=== PATIENT | female | born 1990 ===

== ENCOUNTER 2024-09-17 10:03 | Outpatient (CLI) | payer OTHER | END 2024-09-17 10:04 | disposition home or self-care (01) | LOC: PRENATAL 10:03 | PROVIDERS: ATTEND Obstetrics & Gynecology Maternal & Fetal Medicine | DX: O36.80X0 Pregnancy with inconclusive fetal viability, not applicable or unspecified (principal); Z36.82 Encounter for antenatal screening for nuchal translucency; Z36.9 Encounter for antenatal screening, unspecified; Z14.8 Genetic carrier of other disease; O10.019 Pre-existing essential hypertension complicating pregnancy, unspecified trimester; Z3A.12 12 weeks gestation of pregnancy ==

== ENCOUNTER 2024-11-15 10:32 | Outpatient (CLI) | payer OTHER | END 2024-11-15 10:33 | disposition home or self-care (01) | LOC: PRENATAL 10:32 | PROVIDERS: ATTEND Obstetrics & Gynecology Maternal & Fetal Medicine | DX: O44.00 Complete placenta previa NOS or without hemorrhage, unspecified trimester (principal); O10.019 Pre-existing essential hypertension complicating pregnancy, unspecified trimester; Z3A.20 20 weeks gestation of pregnancy ==

== ENCOUNTER 2025-01-06 09:32 | Outpatient (CLI) | payer OTHER | END 2025-01-06 09:34 | disposition home or self-care (01) | LOC: PRENATAL 09:32 | PROVIDERS: ATTEND Obstetrics & Gynecology Maternal & Fetal Medicine | DX: O26.849 Uterine size-date discrepancy, unspecified trimester (principal); O10.019 Pre-existing essential hypertension complicating pregnancy, unspecified trimester; O99.019 Anemia complicating pregnancy, unspecified trimester; Z3A.27 27 weeks gestation of pregnancy ==

== ENCOUNTER 2025-01-14 09:58 | Outpatient (CLI) | payer OTHER | END 2025-01-14 16:33 | disposition home or self-care (01) | LOC: PRENATAL 09:58 | PROVIDERS: ATTEND Obstetrics & Gynecology Maternal & Fetal Medicine | DX: Z76.1 Encounter for health supervision and care of foundling (principal) ==

== ENCOUNTER → 2025-02-17 09:11 | Outpatient (CLI) | payer OTHER | END | disposition home or self-care (01) | LOC: PRENATAL 09:11 | PROVIDERS: ATTEND Obstetrics & Gynecology Maternal & Fetal Medicine | DX: O26.849 Uterine size-date discrepancy, unspecified trimester (principal); O36.8199 Decreased fetal movements, unspecified trimester, other fetus; O10.019 Pre-existing essential hypertension complicating pregnancy, unspecified trimester; O99.019 Anemia complicating pregnancy, unspecified trimester; Z3A.33 33 weeks gestation of pregnancy ==

== ENCOUNTER 2025-03-03 16:37 | Outpatient (CLI) | payer OTHER ==
[2025-03-03 17:02] VITALS: BP 148/92
[2025-03-03 17:34] LABS: BASO % 0.4 % (0.1-1.2); EOS % 5.1 % (0.7-7.0); HEMATOCRIT 32.2 % (34.1-44.9); HEMOGLOBIN 11.1 g/dL (11.2-15.7); LYMPH # 2.11 (1.18-3.74); LYMPH % 21.7 % (19.3-53.1); MEAN CORPUSCULAR HEMOGLOBIN 31.2 pg (25.6-32.2); MONO # 0.64 (0.24-0.82); MONO % 6.6 % (4.7-12.5); NEUT # 6.33 (1.56-6.13); NEUT % 65.3 % (34.0-71.1); PLATELET COUNT 193 K/uL (163-369); RED BLOOD COUNT 3.56 M/uL (3.93-5.22); RED CELL DISTRIBUTION WIDTH 14.9 % (11.6-14.4); URINE APPEARANCE Clear; URINE BILIRRUBIN Negative (NEGATIVE); URINE BLOOD Trace; URINE COLOR Yellow; URINE GLUCOSE Negative (NEGATIVE); URINE KETONE Negative (NEGATIVE); URINE LEUKOCYTE Negative; URINE NITRATE Negative; URINE PROTEIN Negative (NEGATIVE); URINE UROBILINOGEN 0.2 E.U./dl
[2025-03-03 17:38] LABS: URINE BACTERIA 2247.1 uL (0.0-1933); URINE EPITHELIAL CELLS 16.2 uL (0.0-38.8); URINE WBC 9.6 uL (0.0-23.2)
[2025-03-03 17:51] LABS: URINE RBC 1.3 uL (0.0-20.8)
[2025-03-03] MEDS ORDERED: LABETALOL HCL 100 MG TABLET PO SCH ×2 (17:53→21:00)
[2025-03-03] MEDS ORDERED: PRENATAL TABLE1 EAC1 PO (17:55)
[2025-03-03 17:59] LABS: ALBUMIN 2.6 gm/dL (3.4-5.0); BILIRUBIN TOTAL 0.21 mg/dL (0.3-1.2); CALCIUM 8.9 mg/dL (8.5-10.1); CREATININE SERUM 0.57 mg/dL (0.55-1.02); GFR 122.15; GLOBULINA 3.7 G/DL (2.4-3.5); POTASSIUM 4.39 mEq/L (3.5-5.1); TOTAL PROTEIN 6.3 gm/dL (6.4-8.2); URIC ACID 4.3 mg/dL (2.5-7.5)
[2025-03-03 18:00] LABS: INR 0.94; PARTIAL THROMBOPLASTIN TIME 23.9 SECONDS (22.0-34.0); PROTHROMBIN TIME 10.3 SECONDS (9.0-11.5)
[2025-03-03] MEDS ORDERED: RINGERS SOLUTION,LACTATED 1,000 ML IV SCH (18:00)
[2025-03-03] MEDS ORDERED: MAXIFED TABLET1 EACH PO (18:11)
[2025-03-03] MEDS ORDERED: ADULT LOW DOSE81 M1 PO (18:11)
[2025-03-03 19:36] VITALS: BP 147/84; O2SAT 97
[2025-03-03 23:23] VITALS: BP 123/77
[2025-03-04 04:06] VITALS: BP 127/82
[2025-03-04 07:20] VITALS: BP 130/87
[2025-03-04 11:07] VITALS: BP 120/75
[2025-03-04 15:20] VITALS: BP 130/84
[2025-03-04 18:28] LABS: CREATININE URINE 36.5 MG/DL; URINE PROT QUANT 24HR 11.7 MG/DL
[2025-03-04 18:29] LABS: URINE PROT QUANT 24 HR 269.1 MG/24HR (42-225)
[2025-03-04 18:54] LABS: CREATININE SERUM 0.63 mg/dL (0.6-1.0)
[2025-03-04 18:55] VITALS: BP 130/84
[2025-03-04 18:55] LABS: CREATINE CLEARANCE 92.7 ML/MIN (97-137)
== END 2025-03-04 18:59 | disposition home or self-care (01) ==
LOC: OBS/DEL 16:37
PROVIDERS: ATTEND Obstetrics & Gynecology
DX: O26.893 Other specified pregnancy related conditions, third trimester (principal); Z3A.36 36 weeks gestation of pregnancy

== ENCOUNTER 2025-03-14 07:17 | Inpatient (IN) | payer OTHER ==
[~2025-03-14] VITALS: Ht 149.9 cm; Wt 2.7 kg
[~2025-03-14 07:17] MED LIST: ADULT LOW DOSE81 M1 PO; MAXIFED TABLET1 EACH PO; PRENATAL TABLE1 EAC1 PO
[2025-03-14 07:42] VITALS: BP 126/85
[2025-03-14 08:33] LABS: BASO % 0.5 % (0.1-1.2); EOS # 0.22 (0.04-0.54); EOS % 2.8 % (0.7-7.0); LYMPH # 1.70 (1.18-3.74); LYMPH % 21.4 % (19.3-53.1); MEAN PLATELET VOLUME 12.00 fl (9.4-12.4); MONO # 0.49 (0.24-0.82); MONO % 6.2 % (4.7-12.5); NEUT # 5.47 (1.56-6.13); NEUT % 68.6 % (34.0-71.1); RED CELL DISTRIBUTION WIDTH 14.5 % (11.6-14.4); URINE APPEARANCE Clear; URINE BILIRRUBIN Negative (NEGATIVE); URINE BLOOD Negative; URINE COLOR Yellow; URINE GLUCOSE Negative (NEGATIVE); URINE KETONE Negative (NEGATIVE); URINE LEUKOCYTE Negative; URINE NITRATE Negative; URINE PROTEIN Negative (NEGATIVE); URINE UROBILINOGEN 0.2 E.U./dl
[2025-03-14 08:35] LABS: URINE BACTERIA 351.2 uL (0.0-1933); URINE EPITHELIAL CELLS 7.2 uL (0.0-38.8); URINE WBC 4.7 uL (0.0-23.2)
[2025-03-14] MEDS ORDERED: RINGERS SOLUTION,LACTATED 1,000 ML IV SCH (09:00)
[2025-03-14 09:01] LABS: INR 0.94
[2025-03-14] MEDS ORDERED: LABETALOL HCL100 MG PO (09:01)
[2025-03-14 09:04] LABS: URINE CAST 0.00 uL (0.0-1.40); URINE RBC 0.2 uL (0.0-20.8)
[2025-03-14 10:51] LABS: ALT/SGPT 21.0 U/L (12-78); AST/SGOT 21.0 U/L (15-37); BILIRUBIN TOTAL 0.31 mg/dL (0.3-1.2); BUN CREA RATIO 9.0 (7.0-25.0); CREATININE SERUM 0.56 mg/dL (0.55-1.02); GFR 124.67; GLOBULINA 4.0 G/DL (2.4-3.5); GLUCOSE FASTING 87.0 mg/dL (65-100); LDH 204.0 U/L (84-246); OSMOLALITY SERUM 276.0 MOSM/KG (275-295)
[2025-03-14 11:55] VITALS: BP 131/84
[2025-03-14] MEDS ORDERED: MISOPROSTOL 25 MCG/4 ML GEL.W.APPL VAG NR (12:00)
[2025-03-14 15:12] VITALS: BP 134/87
[2025-03-14] MEDS ORDERED: MISOPROSTOL 25 MCG/4 ML GEL.W.APPL VAG ONE ×2 (16:00→20:30)
[2025-03-14 21:15] VITALS: BP 122/88
[2025-03-14 23:14] VITALS: BP 129/72
[2025-03-15 03:45] VITALS: BP 130/79
[2025-03-15 07:39] VITALS: BP 124/92; BP 136/80
[2025-03-15] MEDS ORDERED: MISOPROSTOL 25 MCG/4 ML GEL.W.APPL VAG ONE (11:15)
[2025-03-15 12:20] VITALS: BP 126/73
[2025-03-15 15:12] VITALS: BP 139/73
[2025-03-15] MEDS ORDERED: ERYTHROMYCIN BASE OPHT 1GM EACH TUBE OP ONE (18:00)
[2025-03-15] MEDS ORDERED: OXYTOCIN 10 UNITS/ML VIAL IV ONE (18:00)
[2025-03-15] MEDS ORDERED: PROMETHAZINE HCL 25 MG/ML AMPUL IM PRN (19:45)
[2025-03-15] MEDS ORDERED: MORPHINE SULFATE 4 MG/ML CARTRIDGE IV PRN (19:45)
[2025-03-15] MEDS ORDERED: ACETAMINOPHEN 325 MG TABLET PO PRN (20:00)
[2025-03-15] MEDS ORDERED: OXYTOCIN 1,000 ML IV SCH (20:15)
[2025-03-15] MEDS ORDERED: CEFAZOLIN SODIUM 1,000 MG VIAL IV STA (20:15)
[2025-03-15] MEDS ORDERED: MORPHINE SULFATE 4 MG/ML VIAL IV ONE (21:30)
[2025-03-15 22:11] VITALS: BP 140/86
[2025-03-16 04:00] VITALS: BP 140/80
[2025-03-16] MEDS ORDERED: OxyCODONE HCL 5 MG TABLET (ROXICODONE) PO PRN (06:00)
[2025-03-16 07:52] LABS: BASO % 0.3 % (0.1-1.2); EOS # 0.05 (0.04-0.54); EOS % 0.4 % (0.7-7.0); LYMPH # 1.43 (1.18-3.74); LYMPH % 10.7 % (19.3-53.1); MEAN PLATELET VOLUME 12.20 fl (9.4-12.4); MONO # 0.59 (0.24-0.82); MONO % 4.4 % (4.7-12.5); NEUT # 11.21 (1.56-6.13); NEUT % 83.8 % (34.0-71.1); RED CELL DISTRIBUTION WIDTH 13.9 % (11.6-14.4)
[2025-03-16 08:36] VITALS: BP 136/81
[2025-03-16] MEDS ORDERED: PNV,CALCIUM 72/IRON/FOLIC ACID 1 TAB TABLET PO SCH (09:00)
[2025-03-16] MEDS ORDERED: DOCUSATE SODIUM 100MG CAP PO SCH (09:00)
[2025-03-16] MEDS ORDERED: SIMETHICONE 125 MG CAPSULE PO SCH (09:00)
[2025-03-16] MEDS ORDERED: KETOROLAC TROMETHAMINE 10 MG TABLET PO SCH (12:00)
[2025-03-16 16:00] VITALS: BP 130/80
[2025-03-16] MEDS ORDERED: LABETALOL HCL 100 MG TABLET PO SCH (17:00)
[2025-03-17 00:49] VITALS: BP 150/80
[2025-03-17 08:54] VITALS: BP 144/84
[2025-03-17] MEDS ORDERED: MEASLES,MUMPS,RUBELLA VACC/PF 1 VIAL VIAL SUBCUTANEO ONE (09:00)
[2025-03-17 16:00] VITALS: BP 130/85
[2025-03-18 02:49] VITALS: BP 140/89
[2025-03-18 08:47] VITALS: BP 135/90
[2025-03-18] MEDS ORDERED: LABETALOL HCL 100 MG TABLET PO SCH (13:00)
== END 2025-03-18 13:42 | disposition home or self-care (01) | DRG 787 ==
LOC: LDR 07:17 → O/R 03-15 18:54 → OB/GYN 03-15 19:32
PROVIDERS: ADMIT Obstetrics & Gynecology; ATTEND Obstetrics & Gynecology
PROC: 4A1HXCZ Monitoring of Products of Conception, Cardiac Rate, External Approach (ICD-10-PCS; 2025-03-14)
PROC: 3E0P7VZ Introduction of Hormone into Female Reproductive, Via Natural or Artificial Opening (ICD-10-PCS; 2025-03-14)
PROC: 3E033VJ Introduction of Other Hormone into Peripheral Vein, Percutaneous Approach (ICD-10-PCS; 2025-03-15)
PROC: 10D00Z1 Extraction of Products of Conception, Low, Open Approach (ICD-10-PCS; principal; 2025-03-15 17:00)
DX: O61.0 Failed medical induction of labor (principal); O10.02 Pre-existing essential hypertension complicating childbirth; Z3A.37 37 weeks gestation of pregnancy; Z37.0 Single live birth